=== PATIENT | male | born 1960 | race Caucasian/White ===

== ENCOUNTER 2016-10-28 16:20 | Inpatient (IN) | payer OTHER ==
[~2016-10-28] VITALS: Ht 188 cm; Wt 99.8 kg
[2016-10-28 16:35] VITALS: BP 158/118
--- NOTE | 2016-10-28 16:36 | NUR ---
PT TAKEN TO ROOM 12.
--- NOTE | 2016-10-28 16:36 | NUR ---
PT TO ED FOR ETOH DETOX. THIS IS PT'S FIRST TIME DETOXING, FIRST TIME SEEKING MEDICAL ATTENTION FOR ETOH W/D, BUT DENIES SEIZURES WITH SELF-DETOX AT HOME. DRINKS ABOUT A PINK OF VODKA A DAY. LAST DRINK WAS A HALF A PINK OF VODKA LAST NIGHT. PT DENIES SI/HI. TREMULOUS IN TRIAGE.
--- NOTE | 2016-10-28 16:43 | NUR ---
PT TO ROOM 12 FOR ETOH DETOX. PT VISIBLY TREMULOUS, DENIES HEADACHE OR NAUSEA. EKG PERFORMED. PT'S SKIN IS FLUSHED AND STATES HIS LAST DRINK WAS YESTERDAY.
--- NOTE | 2016-10-28 16:44 | ED GENERAL ADULT ---
See Addendum History of Present Illness General Chief Complaint: ETOH/Drug Related Complaint Stated Complaint: ETOH WITHDRAWL Source: patient, family Exam Limitations: no limitations Vital Signs & Intake/Output Vital Signs & Intake/Output Vital Signs Date Time Temp Pulse Resp B/P B/P Pulse O2 O2 Flow FiO2 Mean Ox Delivery Rate 10/29 1605 98.4 85 18 144/96 07/02 1525 98.4 85 18 144/96 94 Room Air 07/02 1100 59 156/90 07/02 1100 59 156/90 07/02 0959 98.8 59 18 156/90 07/02 0930 98.8 59 18 156/90 95 Room Air 07/02 0922 97.2 65 16 146/88 97 Room Air 07/02 0813 97.0 72 18 144/92 07/02 0813 97.0 72 18 144/92 96 Room Air 07/02 0700 97.0 100 20 159/99 95 07/02 0659 97.0 100 20 159/99 07/02 0543 97.0 72 20 159/101 95 07/02 0540 97.0 72 20 159/101 07/02 0437 97.9 78 20 151/99 95 Room Air 07/02 0435 97.9 78 20 151/99 07/02 0332 96.9 75 20 149/107 96 Room Air 07/02 0331 96.9 75 20 149/107 07/02 0252 97.9 110 22 155/106 07/02 0252 97.9 110 22 155/106 07/02 0218 97.9 110 22 155/106 07/02 0218 97.9 110 22 155/106 95 Room Air 07/02 0103 97.9 113 22 151/94 95 Room Air 07/02 0100 97.9 113 22 151/94 07/01 2340 98.5 120 22 155/94 07/01 2337 98.5 120 22 155/94 95 Room Air 07/01 2229 98.0 116 18 159/98 07/01 2228 98.0 116 16 159/98 94 Room Air 07/01 2101 130 16 150/96 07/01 2101 130 16 150/96 95 Room Air ED Intake and Output 07/02 0000 07 1200 Intake Total Output Total Balance Patient 220 lb Weight Weight Reported by Patient Measurement Method Allergies Coded Allergies: No Known Allergies (10/28/16) Reconcile Medications Aspirin (Aspirin*) 81 MG TAB.CHEW CARDIAC HEALTH (Reported) Lisinopril 20 MG TABLET 1 TAB PO DAILY HTN (Reported) Multivitamin (One Daily Multivitamin) 1 EACH TABLET 1 TAB PO DAILY SUPPLEMENT (Reported) Triage Note: PT TO ED FOR ETOH DETOX. THIS IS PT'S FIRST TIME DETOXING, FIRST TIME SEEKING MEDICAL ATTENTION FOR ETOH W/D, BUT DENIES SEIZURES WITH SELF-DETOX AT HOME. DRINKS ABOUT A PINK OF VODKA A DAY. LAST DRINK WAS A HALF A PINK OF VODKA LAST NIGHT. PT DENIES SI/HI. TREMULOUS IN TRIAGE. Triage Nurses Notes Reviewed? yes HPI: Patient has a history of binge drinking. Patient has never been through detox rehabilitation before however states that he has been able to stop abruptly 2 weeks in the past. Patient states that when he does stop for that long he gets a little tremulous but that's it there is no history of seizures or DTs. Patient went to rehabilitation today but he was intoxicated suicide down to the emergency department for evaluation. Patient denies any suicidal homicidal ideations. There is no nausea. There is no headache. (DAVEY FREIRE,JULES Cerda) Past History Travel History Traveled to [place] past 21 day No Medical History Any Pertinent Medical History? see below for history Neurological: NONE EENT: NONE Cardiovascular: hypertension Respiratory: NONE Gastrointestinal: NONE Hepatic: NONE Renal: NONE Musculoskeletal: NONE Psychiatric: ETOH ABUSE Endocrine: NONE Blood Disorders: NONE Cancer(s): NONE AREA CAPTAIN/Reproductive: NONE Surgical History Surgical History: non-contributory Psychosocial History What is your primary language Malian Tobacco Use: Never used ETOH Use: alcoholic Illicit Drug Use: denies illicit drug use Family History Hx Contributory? No (DAVEY FREIRE,JULES Cerda) Review of Systems Review of Systems Constitutional: Reports: no symptoms. EENTM: Reports: no symptoms. Respiratory: Reports: no symptoms. Cardiovascular: Reports: no symptoms. GI: Reports: no symptoms. Genitourinary: Reports: no symptoms. Musculoskeletal: Reports: no symptoms. Skin: Reports: no symptoms. Neurological/Psychological: Reports: see HPI. Hematologic/Endocrine: Reports: no symptoms. Immunologic/Allergic: Reports: no symptoms. All Other Systems: Reviewed and Negative (JULES MARISCAL MD) Physical Exam Physical Exam General Appearance: well developed/nourished, alert, awake, anxious, moderate distress Head: atraumatic, normal appearance Eyes: Bilateral: PERRL, EOMI. Ears, Nose, Throat: normal pharynx, normal ENT inspection, hearing grossly normal Neck: normal inspection, supple, full range of motion Respiratory: normal breath sounds, chest non-tender, no respiratory distress, lungs clear Cardiovascular: normal peripheral pulses, tachycardia Gastrointestinal: normal bowel sounds, soft, non-tender, no organomegaly Back: normal inspection, normal range of motion Extremities: normal inspection, normal capillary refill, normal range of motion, no edema Neurologic/Psych: no motor/sensory deficits, awake, alert, oriented x 3, normal mood/affect Skin: intact, normal color, warm/dry Lymphatic: no anterior cervical luz maria Core Measures ACS in differential dx? No CVA/TIA Diagnosis: No Severe Sepsis Present: No Septic Shock Present: No (DAVEY FREIRE,JULES Cerda) Progress Differential Diagnoses I considered the following diagnoses in my evaluation of the patient: [Alcohol withdrawal, alcohol dependency] Plan of Care: Orders Procedure Date/time Status URINALYSIS 10/30 06 Active PROTHROMBIN TIME 10/30 0600 Active HEPATIC FUNCTION PANEL 10/30 06 Active HEPATITIS PANEL 10/30 06 Active CBC WITHOUT DIFFERENTIAL 10/30 0600 Active BASIC ELECTROLYTES PLUS BUN&CR 10/30 0600 Active Heart Healthy Diet 10/29 L Active Regular Diet 10/29 B Complete Pathway - chart 10/29 1550 Active Teach/Educate 10/29 0959 Active Pain Treatment and Response 10/29 0959 Active Nutritional Intake, Monitor 10/29 0959 Active Isolation 10/29 0959 Active Patient Care Conference 10/29 0959 Active Pathway - chart 10/29 0948 Active Pathway - chart 10/29 0946 Active House Staff 10/29 0946 Active Patient Data 10/29 0946 Active SOCIAL WORK CONSULT 10/29 0946 Active Code Status 10/29 0946 Active Patient Data 10/29 0726 Active Saline Lock 10/29 0720 Active Misc Message 10/29 0720 Active ED Holding Orders 10/29 0720 Active Vital Signs 10/29 0720 Active Activity/Ambulation 10/29 0720 Active Code Status 10/29 0720 Complete Admit to inpatient 10/29 0716 Active ARTERIAL BLOOD GAS (GEN) 10/29 0420 Complete AMMONIA 10/29 0420 Complete COMPREHENSIVE METABOLIC PANEL 10/29 0420 Complete CBC WITHOUT DIFFERENTIAL 10/29 0420 Complete CREATINE PHOSPHOKINASE 10/29 0335 Complete Lab Add-on Test 10/29 UNK Active VTE Mechanical Prophylaxis 10/29 UNK Active Vital Signs 10/29 UNK Complete Intake & Output 10/29 UNK Active CIWA 10/29 UNK Active EKG 10/29 UNK Active Pathway - chart 10/28 2348 Active URINALYSIS 10/28 2326 Complete Pathway - chart 10/28 2232 Active Intake & Output 10/28 2041 Complete Current Medications Sig/Joe Start time Last Medication Dose Stop Time Status Admin Lorazepam 3 MG Q6 10/30 0600 CAN (Ativan) 10/30 1801 Ibuprofen 600 MG Q6P PRN 10/29 1800 AC (Motrin) Morphine Sulfate 1 MG Q4P PRN 10/29 1800 AC (Morphine) Oxycodone HCl 5 MG Q6P PRN 10/29 1800 AC (Roxicodone) Senna 187 MG AT BEDTIME PRN 10/29 1600 AC (Senokot) Lorazepam 3 MG Q6 10/29 1200 AC 10/29 (Ativan) 1801 Folic Acid 1 MG DAILY 10/29 1000 AC 10/29 (Folic Acid) 10/31 1001 1100 Lisinopril 20 MG DAILY 10/29 1000 AC 10/29 (Prinivil) 1100 Metoprolol Tartrate 25 MG BID 10/29 1000 AC 10/29 (Lopressor) 1100 Multivitamins 1 TAB DAILY 10/29 1000 AC 10/29 (Theragran Vitamins) 1100 Multivitamins 1 TAB DAILY 10/29 1000 CAN Therapeutic (Theragran-M Vitamins Tabs) Thiamine HCl 100 MG DAILY 10/29 1000 AC 10/29 (Vitamin B1) 10/31 1001 1100 Sodium Chloride 1,000 ML .Q8H 10/29 0730 AC 10/29 (Normal Saline 0.9%) 1614 Lorazepam 2 MG Q2P PRN 10/28 2345 AC 10/29 (Ativan) 0704 Lorazepam 1 MG Q2P PRN 10/28 2345 AC 10/29 (Ativan) 1613 Laboratory Tests 10/29/16 0430: pH 7.45, pCO2 33 L, pO2 68 L, HCO3 22, ABG O2 Sat (Measured) 93.0 L, P-50 ( Temp Corrected) N, Carboxyhemoglobin 1.1 L, O2 Concentration % RA, Phlebotomy Draw Site RIGHT BRACHIAL 10/29/16 0335: Anion Gap 11, Estimated GFR > 60, BUN/Creatinine Ratio 18.8, Glucose 95, Calcium 9.3, Total Bilirubin 1.5 H, AST 253 H, ALT 216 H, Alkaline Phosphatase 88, Ammonia < 9 L, Creatine Kinase 481 H, Total Protein 6.8, Albumin 4.1, Globulin 2.7, Albumin/Globulin Ratio 1.5, CBC w Diff MAN DIFF ORDERED, RBC 3.95 L, MCV 91.1, MCH 30.4, RDW 17.2 H, MPV 8.0, Segmented Neutrophils 27 L, Band Neutrophils 5, Lymphocytes 55 H, Monocytes 8, Eosinophils 2, Basophils 3 H, Platelet Estimate ADEQUATE, Normocytic RBCs VERIFIED, Normochromic RBCs VERIFIED , PUBS MCHC 33.4 10/28/16 2327: Urine Opiates Screen < 100.00, Methadone Screen < 40, Barbiturate Screen < 60, Ur Phencyclidine Scrn < 6.00, Amphetamines Screen < 100, U Benzodiazepines Scrn < 85, Urine Cocaine Screen < 50, Urine Cannabis Screen < 5.00, Urinalysis LIGHT H, Urine Color ORANG H, Urine Clarity CLEAR, Urine pH 6.0, Ur Specific [place] >= 1.030, Urine Protein >=300 H, Urine Ketones 40 H, Urine Nitrite NEG, Urine Bilirubin NEG@ICTO, Urine Urobilinogen 1.0, Ur Leukocyte Esterase NEG, Ur Microscopic SEDIMENT EXAMINED, Urine RBC 1-3, Urine WBC RARE, Ur Epithelial Cells RARE, Hyaline Casts 1-3 H, Granular Casts 1-3 H, Urine Mucus FEW, Urine Hemoglobin LARGE H, Urine Glucose NEG Initial ED EKG: none Rhythm Strip: sinus tachycardia Hand-Off Endorsed To: BONITA FREIRE,SLIME Bermudez Endorsed Time: 1899 Pending: labs, other (RE-EVAL) (DAVEY FREIRE,JULES Cerda) Comments: 10/28/2016 8:04:00 PM patient 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 Patient presents for alcohol dependence abdominal distention and diarrhea appears to be withdrawing from alcohol. Patient is being medicated with Ativan. He has declined inpatient detox. He will be observed overnight and referred to [facility] in the morning. If the patient's withdrawal symptoms becomes severe however he will be admitted for inpatient detox. 10/29/2016 2:36:03 AM I have begun treating meal for acute alcohol withdrawal. I feel he now requires inpatient detox given his significantly elevated CIWA scores. Although CIWA scores have improved with Ativan, he remains hypertensive and tachycardic. I have ordered his typical dose of lisinopril and have added Lopressor. We will continue to monitor CIWA scores and rate and blood pressure. Patient will need preauthorization for inpatient detox. 10/29/2016 4:20:51 AM patient's vital signs have improved with treatment. However this patient's nurse is concerned about his level of alertness. She states he seems to be unaware that he had soiled his undergarments and seems to forget that he has an IV in place. It is unclear if this is a due to an underlying metabolic process or that he is confused secondary to undertreated alcohol withdrawal. Additional Ativan has been ordered along with repeat labs. 10/29/2016 7 AM patient signed out to Dr. Mariscal. With review of patient's insurance entitlements at sign out, was determined that the patient does not in fact need preauthorization. He will be admitted. (BONITA FREIRE,SLIME Bermudez) Departure Departure Disposition: STILL A PATIENT Condition: Stable Clinical Impression Primary Impression: Alcohol intoxication Qualifiers: Complication of substance-induced condition: uncomplicated Qualified Code: F10.920 - Alcohol use, unspecified with intoxication, uncomplicated Departure Forms: Customer Survey General Discharge Information (JULES MARISCAL MD) Alcohol Withdrawl Admission ED Alcohol Detox Admission d/t: CIWA Score >15 (SLIME MESA MD) Critical Care Note Critical Care Note Critical Care Time: non-applicable (JULES MARISCAL MD) Critical Care Note Critical Care Time: 30-74 min (SLIME MESA MD)
--- NOTE | 2016-10-28 16:58 | NUR ---
DR MARISCAL AT BEDSIDE FOR EVAL. PT'S BROTHER AT BEDSIDE.
--- NOTE | 2016-10-28 17:04 | NUR ---
PT MEDICATED WITH ATIVAN 2MG IV IV ESTABLISHED RIGHT FOREARM #20
[2016-10-28] MEDS ORDERED: LISINOPRIL20 M1 PO (17:06)
[2016-10-28] MEDS ORDERED: ASPIRIN81 M4 (17:07)
[2016-10-28] MEDS ORDERED: ONE DAILY MULT1 EAC2 PO (17:08)
--- NOTE | 2016-10-28 17:16 | NUR ---
PT STATES THAT HIS BROTHER CAME DOWN FROM [place] TO GET PT INTO TREATMENT FOR ETOH. PT'S BROTHER BROUGHT PT TO [facility] AND THEY WERE DIRECTED TO COME TO [facility] FOR DETOX. PT PLANS ON GOING TO [facility] AFTER D/C FROM THIS HOSPITAL. PT DENIES HX OF W/D SEIZURES. 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
[2016-10-28 17:17] LABS: ABSOLUTE BASOPHIL COUNT 0 /CUMM (0.0-0.2); ABSOLUTE EOSINOPHIL COUNT 0 /CUMM (0.0-0.7); ABSOLUTE GRANULOCYTE CT 3.4 /CUMM (1.4-6.5); ABSOLUTE LYMPH COUNT 1.2 /CUMM (1.2-3.4); ABSOLUTE MONOCYTE COUNT 0.7 /CUMM (0.10-0.60); BASOPHIL % 0 % (0.0-2.0); EOSINOPHIL % 0.9 % (0-5); MEAN CORPUSCULAR HGB CONC 33.2 G/DL (33.0-37.0); MEAN CORPUSCULAR VOLUME 90.4 FL (80.0-94.0); MEAN PLATELET VOLUME 7.9 FL (7.4-10.4); PLATELET COUNT 186 /CUMM (130-400); RBC DISTRIBUTION WIDTH 17.1 % (11.5-14.5); RED BLOOD CELL CT 4.43 /CUMM (4.70-6.10); WHITE BLOOD CELL COUNT 5.4 /CUMM (4.8-10.8)
[2016-10-28 17:41] LABS: GRANULOCYTE % 63.2 % (42.2-75.2)
[2016-10-28 18:20] VITALS: BP 161/102
--- NOTE | 2016-10-28 18:21 | NUR ---
PT MEDICATED WITH ATIVAN 2MG IV AND 2MG PO FOR CIWA = 13. PT DENIES HEADACHE OR NAUSEA. PT REQUESTED PETROLEUM JELLY FOR HIS LIPS WHICH WERE DRY, THIS RN APPLIED TO PT, HE IS TOO TREMULOUS TO DO IT HIMSELF. AWAITING URINE SPECIMEN.
--- NOTE | 2016-10-28 19:11 | NUR ---
PT REMAINS TREMULOUS AND DENIES ANY OTHER WITHDRAWAL SYMPTOMS. CO REQUESTED AND WAS PROVIDED WITH CHE NASEEM AND SALTINE CRACKERS. WILL MAKE MD AWARE OF VITALS.
[2016-10-28 21:01] VITALS: BP 150/96
--- NOTE | 2016-10-28 21:02 | NUR ---
PT ATTEMPTED TO PROVIDE URINE SPECIMEN BUT WAS UNSUCCESSFUL. PT PROVIDED WITH MORE WATER TO DRINK. PT CALM AND COOPERATIVE. PT REMAINS VERY TREMULOUS. PT WATCHING TV IN ROOM 12.
--- NOTE | 2016-10-28 22:27 | NUR ---
PT LYING ON STRETCHER IN ROOM 12 WITH FLUSHED, WARM SKIN. PT WITH STRONG TREMORS. AT THIS TIME PT DENIES HEADACHE OR NAUSEA. PT CALM AND COOPERATIVE.
[2016-10-28 22:29] VITALS: BP 159/98
--- NOTE | 2016-10-28 22:45 | NUR ---
PT MEDICATED WITH ATIVAN 2MG IV AND 1ST LITER OF SALINE STARTED.
--- NOTE | 2016-10-28 23:20 | NUR ---
PT AWAKENED TO ATTEMPT TO VOID REPORTS HE HAS NOT TRIED TODAY PT AWARE OF TIME AND THAT HE HAS BEEN HERE ALL DAY, PT AWARE THAT SINCE HE HAS HAD FLUIDS I AM CONCERNED ABOUT HIS KIDNEYS SINCE HE HAS NOT VOIDED. ATTEMPTING AT THIS TIME. PT AWARE THAT A ST CATH WOULD BE PERFORMED IF UNABLE TO VOID. PT VERY TREMUL;OUS/
--- NOTE | 2016-10-28 23:28 | NUR ---
VOIDED 200 CCS CONCENTRATED ORANGE URINE UA ADDED AND SENT
--- NOTE | 2016-10-28 23:34 | NUR ---
PTS VALUABLES ENVELOPE SEALED FOUND ON HAMPER IN ROOM MOVED TO SAFE. CLOTHING IN BAG ON RIAN IN ROOM ,NANCY CONTACTED FROM SECURITY TO RE GO THROUGH CLOTHES AND MOVE TO CLOSET.
[2016-10-28 23:40] VITALS: BP 155/94
--- NOTE | 2016-10-28 23:44 | NUR ---
DR. MESA AWARE PT VERY TREMULOUS AND CIWA 20. MED WITH 2 MG IV ATIVAN.
[2016-10-29] VITALS (15 sets, daily range): BP systolic 140–159; BP diastolic 85–107
--- NOTE | 2016-10-29 00:23 | NUR ---
PER PHARMACY ED MIXES OWN BANANA BAGS, THIS RN MADE PHARMACIST AWARE THAT WE USUALLY DO NOT MIX IT AND THERE IS NO FOLATE IN ED AT THIS TIME. PER PHARMACY WILL NEED TIME TO MIX. PER DR MESA PT HAS HUSKY AND NEEDS PRIOR AUTH FOR MEDICAL ADMISSION WILL STAY ED PT OVER NIGHT
--- NOTE | 2016-10-29 00:43 | NUR ---
REMAINS SL TREMULOUS AND SL FORGETFUL.
--- NOTE | 2016-10-29 02:30 | NUR ---
MD AWARE OF CONSISTANTLY HIGH BP/.
--- NOTE | 2016-10-29 04:29 | NUR ---
PT INCONTINENT OF SOFT LIQUID STOOL. PT REQUESTS TO KEEP HIS UNDERWEAR ON PT IS AWARE THAT HIS UNDERWEAR ARE SOILED, PT DOES NOT APPEAR TO COMPREHEND THIS CONCEPT, PT HAD TO BE ASSISTED IN REMOVING UNDERWEAR. PT CONTINUALLY LOOKS AT IV TUBING IF IT IS THE FIRST TIME HE IS SEEING IT. DENIES VISUAL OR AUDITORY HALLUCINATIONS, AND IS CLEAR TO PERSON, PLACE AND TIME BUT LITTLE ELSE. PT HAS DRY FLAKY SKIN TO BLE, WHICH IS NORMAL EXCEMA.DR MESA CONSULTED. PT REMAINS MORE TREMULOUS WITH AMBULATION, UNABLE TO WALK INDEPENDENTLY. REMED WITH 2 MG IV ATIVAN REPEAT LABS AMMONIA AND ABGS DRAWN
[2016-10-29 04:43] LABS: HEMATOCRIT 35.9 % (42-52); MEAN CORPUSCULAR HGB 30.4 PG (27.0-31.0); MEAN CORPUSCULAR HGB CONC 33.4 G/DL (33.0-37.0); MEAN CORPUSCULAR VOLUME 91.1 FL (80.0-94.0); PLATELET COUNT 149 /CUMM (130-400); RBC DISTRIBUTION WIDTH 17.2 % (11.5-14.5); RED BLOOD CELL CT 3.95 /CUMM (4.70-6.10); WHITE BLOOD CELL COUNT 4.3 /CUMM (4.8-10.8)
--- NOTE | 2016-10-29 07:22 | NUR ---
ASSUMED CARE OF PT AT THIS TIME, PT SITTING UP EATING BREAKFAST TRAY AT THIS TIME. REMAINS SLIGHTLY TREMULOUS AT THIS TIME.
--- NOTE | 2016-10-29 08:04 | NUR ---
PT ADMITTED TO ROOM 216-2
--- NOTE | 2016-10-29 08:14 | NUR ---
PT SITITNG UP WATCHING TV AT THIS TIME, BANANA BAG CONTINUES TO INFUSE PER ORDER. PT OFFERS NO COMPLAINTS. SKIN WARM/DRY. SLIGHT TREMORS NOTED WITH IMPROVEMENT FROM PREVIOUS. PT AWARE HE WILL BE ADMITTED TO THE HOSPITAL AND IN AGREEMENT IN PLAN OF CARE.
--- NOTE | 2016-10-29 08:32 | NUR ---
REPORT GIVEN TO MARI JETER.
--- NOTE | 2016-10-29 08:40 | History & Physical ---
ROBB FREIRE,ALFRED 10/29/16 0835: General Information and HPI MD Statement: I have seen and personally examined MAYANK SAMAYOA and documented this H&P. The patient is a 56 year old M who presented with a patient stated chief complaint of [ETOH DETOX]. Source of Information: patient Exam Limitations: no limitations History of Present Illness: This is a 56 yo male with PMH of HTN, psoriasis on Humira who comes in with CC of requesting Etoh detox. Pt states that he had been binge drinking for a week and decided to quit suddenly. He went to a rehab facility at request of a brother and when at the facility he was visibly intoxicated, he sent to ED. Pt states that he drinks every day about .5 to 1 pint of vodka. He has been able to stop cold turkey for several weeks at a time without adverse consequences. He has never had a hx of seizure or DTs. He has never been to any form of rehab for etoh withdrawl. He does have history of black outs, the last time in March. At that time, he was working in the yard, reportedly un-intoxicated, and then found himself down for an unknown period of time. He denies any bladder or bowel control but does endorse a dazed sensation after. This has happended a total of 4-5 times in the last 3-4 yrs. He follows up with a neurologist in [place] who prescribed pyridostigmine. Unsure of the veracity of information, but he does have prescription for the medication. Patient denies any other medical or psychiatric diagnosis. Fam hx relevant for TX in father at age 57. Pt denies smoking or using any drugs. Denies any fever, chills, nausea, vomiting, diarrhea, headache, change in vision, or loss of consciousness. He was in ED with CIWA scores at max of 20. As he has had high requirements for Ativan and decision was made to admit for inpatient detox. Allergies/Medications Allergies: Coded Allergies: No Known Allergies (10/28/16) Home Med list Aspirin (Aspirin*) 81 MG TAB.CHEW CARDIAC HEALTH (Reported) Lisinopril 20 MG TABLET 1 TAB PO DAILY HTN (Reported) Multivitamin (One Daily Multivitamin) 1 EACH TABLET 1 TAB PO DAILY SUPPLEMENT (Reported) Compliance With Home Meds: POOR Past History Travel History Traveled to [place] past 21 day No Medical History Neurological: NONE EENT: NONE Cardiovascular: hypertension Respiratory: NONE Gastrointestinal: NONE Hepatic: NONE Renal: NONE Musculoskeletal: NONE Psychiatric: ETOH ABUSE Endocrine: NONE Blood Disorders: NONE Cancer(s): NONE 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 Ambulation: independent IADLs Independent: shopping, housework, finances, food prep, telephone, transportation , medication admin. Review of Systems Review of Systems Constitutional: Reports: see HPI. Exam & Diagnostic Data Last 24 Hrs of Vital Signs/I&O Vital Signs Date Time Temp Pulse Resp B/P B/P Pulse O2 O2 Flow FiO2 Mean Ox Delivery Rate / 0813 97.0 72 18 144/92 07/ 0813 97.0 72 18 144/92 96 Room Air 07/02 0700 97.0 100 20 159/99 95 07/02 0659 97.0 100 20 159/99 07/02 0543 97.0 72 20 159/101 95 07/02 0540 97.0 72 20 159/101 07/02 0437 97.9 78 20 151/99 95 Room Air 07/02 0435 97.9 78 20 151/99 07/02 0332 96.9 75 20 149/107 96 Room Air 07/02 0331 96.9 75 20 149/107 07/02 0252 97.9 110 22 155/106 07/02 0252 97.9 110 22 155/106 07/02 0218 97.9 110 22 155/106 07/02 0218 97.9 110 22 155/106 95 Room Air 07/02 0103 97.9 113 22 151/94 95 Room Air 07/02 0100 97.9 113 22 151/94 07/01 2340 98.5 120 22 155/94 07/01 2337 98.5 120 22 155/94 95 Room Air 07/01 2229 98.0 116 18 159/98 07/01 2228 98.0 116 16 159/98 94 Room Air 07/ 2101 130 16 150/96 07/ 2101 130 16 150/96 95 Room Air 07/01 1911 121 16 167/93 95 Room Air 10/28 1820 133 18 161/102 10/28 1820 133 18 161/102 95 Room Air 10/28 1705 Room Air 10/28 1635 97.1 123 15 158/118 01 1632 97.1 123 15 158/118 97 Room Air Room Air Intake & Output 10/29 1600 07/ 0800 07 0000 Intake Total Output Total Balance Patient 99.79 kg Weight Weight Reported by Patient Measurement Method Physical Exam General Appearance Alert, Oriented X3, Cooperative, No Acute Distress Skin No Significant Lesion HEENT Atraumatic, PERRLA, EOMI Cardiovascular Regular Rate, Normal S1, Normal S2, No Murmurs Lungs Clear to Auscultation, Normal Air Movement Abdomen Soft Neurological Normal Speech, Sensation Intact, Cranial Nerves 3-12 NL Extremities No Clubbing, No Cyanosis, No Edema Last 24 Hrs of Labs/Aditya: Laboratory Tests 10/29/16 0430: pH 7.45, pCO2 33 L, pO2 68 L, HCO3 22, ABG O2 Sat (Measured) 93.0 L, P-50 ( Temp Corrected) N, Carboxyhemoglobin 1.1 L, O2 Concentration % RA, Phlebotomy Draw Site RIGHT BRACHIAL 10/29/16 0335: Anion Gap 11, Estimated GFR > 60, BUN/Creatinine Ratio 18.8, Glucose 95, Calcium 9.3, Total Bilirubin 1.5 H, AST 253 H, ALT 216 H, Alkaline Phosphatase 88, Ammonia < 9 L, Total Protein 6.8, Albumin 4.1, Globulin 2.7, Albumin/Globulin Ratio 1.5, CBC w Diff MAN DIFF ORDERED, RBC 3.95 L, MCV 91.1, MCH 30.4, RDW 17.2 H, MPV 8.0, Segmented Neutrophils 27 L, Band Neutrophils 5, Lymphocytes 55 H, Monocytes 8, Eosinophils 2, Basophils 3 H, Platelet Estimate ADEQUATE, Normocytic RBCs VERIFIED, Normochromic RBCs VERIFIED, PUBS MCHC 33.4 10/28/16 2327: Urine Opiates Screen < 100.00, Methadone Screen < 40, Barbiturate Screen < 60, Ur Phencyclidine Scrn < 6.00, Amphetamines Screen < 100, U Benzodiazepines Scrn < 85, Urine Cocaine Screen < 50, Urine Cannabis Screen < 5.00, Urinalysis LIGHT H, Urine Color ORANG H, Urine Clarity CLEAR, Urine pH 6.0, Ur Specific [place] >= 1.030, Urine Protein >=300 H, Urine Ketones 40 H, Urine Nitrite NEG, Urine Bilirubin NEG@ICTO, Urine Urobilinogen 1.0, Ur Leukocyte Esterase NEG, Ur Microscopic SEDIMENT EXAMINED, Urine RBC 1-3, Urine WBC RARE, Ur Epithelial Cells RARE, Hyaline Casts 1-3 H, Granular Casts 1-3 H, Urine Mucus FEW, Urine Hemoglobin LARGE H, Urine Glucose NEG 10/28/16 1705: Anion Gap 19 H, Estimated GFR > 60, BUN/Creatinine Ratio 17.8, Glucose 88, Calcium 10.1, Total Bilirubin 1.2, AST 402 H, ALT 276 H, Alkaline Phosphatase 109, Total Protein 8.0, Albumin 4.9, Globulin 3.1, Albumin/Globulin Ratio 1.6, CBC w Diff NO MAN DIFF REQ, RBC 4.43 L, MCV 90.4, MCH 30.0, RDW 17.1 H, MPV 7.9, Gran % 63.2, Lymphocytes % 22.4, Monocytes % 13.5 H, Eosinophils % 0.9, Basophils % 0 L, Absolute Granulocytes 3.4, Absolute Lymphocytes 1.2, Absolute Monocytes 0.7 H, Absolute Eosinophils 0, Absolute Basophils 0, PUBS MCHC 33.2, Serum Alcohol 40.0 Assessment/Plan Assessment: This is a 56 yo male with PMH of HTN, psoriasis on Humira, alcohol abuse, questionable hx of black outs who comes in for CC of etoh detox. CIWA in ED ranging form 8-20. Has requred 16mg Ativan in less than 24 hrs. ED work up shows: Vitals: 97.1, 123, 15, 158/118, 97 AB.45, PCO2 33, bicarbonate 22 CBC: White count 4.3, hemoglobin 12.0, hematocrit 35.9 BEP sodium 135, BUN 15, creatinine 0.8 T bili 1.5, AST 253, ALT 216, UA: Greater than 300 protein, 40 ketones, large hemoglobin with only 1-3 and RBC. PLAN Etoh detox: Patient has has CIWA scores ranging from 8-20. He had requirement of almost 16 mg of Ativan in 24 hours. Though patient denies any history of DTs or seizures, his episodes of blackout are concerning for possible seizure activity. * CIWA protocol and 3q6 around the clock * Banana bag--> PO vitamins * Social work consult Hypertension: Patient is usually on lisinopril 20 mg at home. Here he was started on home meds in addition to metoprolol 50 mg bid as his blood pressure remained elevated in ED. Will decrease lopressor. Once his CIWA score stabilize consider removing metoprolol if appropriate. * Lisinopril 20 mg * Lopressor 25 mg by mouth twice a day Transaminitis: Patient has T bili 1.5, AST 253, ALT 216. This is likely secondary to alcohol consumption. Will rule out other etiologies * Continue to monitor LFTs in am tomorrow * Hepatitis panel in AM * Coags in AM Hematuria: Patient has large hemoglobin on UA but only 1-3 RBC. Considering rhabdo at this time. * CPK * Repeat UA in AM Psoriasis: Pt is on Humira; unsure of time of last dose. Holidng in hospital. Will have to obtain records. * Get records BLACK OUTS and Pyridostigmine: Unsure of hx of black outs and why pt is on this medication. Will have to call his nerurologist and verify his history. * Holding pyridostigmine! * Call neurologist FULL CODE [facility] Heart healthy diet As Ranked By This Provider Problem List: 1. Alcohol intoxication Qualifiers Complication of substance-induced condition: uncomplicated Qualified Code: F10.920 - Alcohol use, unspecified with intoxication, uncomplicated Core Measures/Miscellaneous Acute Coronary Syndrome ACS Diagnosis: No Cerebrovascular Accident CVA/TIA Diagnosis: No Congestive Heart Failure CHF Diagnosis: No VTE (View Protocol) VTE Risk Factors: Acute medical illness, Age > 40 [facility] prophylaxis d/t: No contraindications No VTE Pharm Prophylaxis d/t: No contraindications VTE Diagnosis: No VTE Type: NONE VTE Confirmed by (Test): NONE Sepsis (View Protocol) Severe Sepsis Present: No Septic Shock Septic Shock Present: No Miscellaneous Documentation Attending Case Discussed With: MARIA DE JESUS MENA MD Primary Care Physician: UNKNOWN Patient sees these Specialists unknown Level of Patient Care: General Medicine Resident Review Statement Resident Statement: examined this patient MARIA DE JESUS MENA MD 10/29/16 0958: Attending MD Review Statement Attending Statement Attending MD Statement: examined this patient, discuss w/resident/PA/[employer], agreed w/resident/PA/[employer], reviewed EMR data (avail), reviewed images Attending Assessment/Plan: 56-year-old male past medical history of alcohol abuse, hypertension, psoriasis on Humira and a history of blackouts on pyridostigmine. He is here for acute alcohol withdrawal. This is his very first inpatient detox. He was scheduled to go to [facility] in [place] for inpatient alcohol rehabilitation but he was intoxicated and tremulous and hence sent here. He was watched overnight in the ER from 5 PM yesterday and CIWA ranged from 8-20 and he received a total of 16 mg of Ativan in less than 24 hours overnight in the ER. Will bring him into [facility] and treat him with Ativan [id number]. We'll give him 3 mg every 6 hours with IV Ativan/by mouth Ativan per CIWA. We'll give him the thiamine, folate and multivitamins. Continue his lisinopril for blood pressure and low-dose metoprolol has been added in the ER for hypetension and tachycardia but I suspect is all withdrawal related. Obviously hold the Humira and pyridostigmine and get more collateral info from the PCP. DVT prophylaxis, trend the alcoholic transaminitis and elevated bili closely. And social work consult in a.m.
--- NOTE | 2016-10-29 09:58 | Admission Certification ---
Admission Certification Certification Statement - As attending physician, I certify that at the time of - admission, based on clinical presentation, severity of - symptoms, need for further diagnostic testing and - therapeutic interventions, and risk of adverse outcomes - without in-hospital treatment, in my clinical assessment, - this patient requires an acute hospital stay for a minimum - of two nights or longer. I have also considered psychsocial - factors such as support system, advanced age, financial - issues, cognitive issues, and failed out-patient treatments, - past re-admission history, safety of patient, and lack of - compliance as applicable. Specific rationale supporting this admission is: Acute alcohol withdrawal needs Ativan [id number]
--- NOTE | 2016-10-29 10:44 | RADIOLOGY REPORT ---
EXAMINATION: PORTABLE CHEST 1 VIEW CLINICAL INFORMATION: LOW O2 SAT COMPARISON: No recent pertinent prior studies are available for comparison. TECHNIQUE: Portable frontal view of the chest was obtained. FINDINGS: Lungs are hypoexpanded with elevation of the right hemidiaphragm. Minimal linear basilar markings more suggestive of atelectasis in this setting. No superimposed focal infiltrate, effusion, edema, or pneumothorax. Cardiac and mediastinal silhouettes within normal limits for the technique no acute bony abnormality IMPRESSION: Hypoexpanded with elevation of the right hemidiaphragm and minimal basilar markings more suggestive of atelectasis
--- NOTE | 2016-10-29 19:19 | NUR ---
ALERT AND ORIENTED X 3. ON ROOM AIR. DENIES SHORTNESS OF BREATH VITAL SIGNS STABLE. DENIES CHEST PAIN. + PULSES. DENIES NUMBNESS/TINGLING GAIT UNSTEADY. SKIN C/D/I. ON CIWA PROTOCOL. TREMORS NOTED. PATIENT RESTING COMFORTABLY AT THIS TIME. WILL CONTINUE TO MONITOR
[2016-10-30] VITALS (10 sets, daily range): BP systolic 140–165; BP diastolic 70–108
[2016-10-30 08:03] LABS: ABSOLUTE BASOPHIL COUNT 0 /CUMM (0.0-0.2); ABSOLUTE EOSINOPHIL COUNT 0.1 /CUMM (0.0-0.7); ABSOLUTE GRANULOCYTE CT 2.1 /CUMM (1.4-6.5); ABSOLUTE LYMPH COUNT 1.9 /CUMM (1.2-3.4); ABSOLUTE MONOCYTE COUNT 0.9 /CUMM (0.10-0.60); BASOPHIL % 0 % (0.0-2.0); EOSINOPHIL % 1.1 % (0-5); GRANULOCYTE % 42.3 % (42.2-75.2); HEMATOCRIT 33.8 % (42-52); MEAN CORPUSCULAR HGB 30.7 PG (27.0-31.0); MEAN CORPUSCULAR HGB CONC 33.7 G/DL (33.0-37.0); MEAN CORPUSCULAR VOLUME 91.2 FL (80.0-94.0); MEAN PLATELET VOLUME 8.5 FL (7.4-10.4); PLATELET COUNT 128 /CUMM (130-400); RED BLOOD CELL CT 3.71 /CUMM (4.70-6.10); WHITE BLOOD CELL COUNT 4.9 /CUMM (4.8-10.8)
--- NOTE | 2016-10-30 08:38 | PN- Housestaff ---
Subjective Follow-up For: Alcohol detox Complaints: no complaints Subjective: I have seen and examined the pt. He is doing well and has no current complains. He denies any sob, chestpain or palpitations Review of Systems Constitutional: Reports: no symptoms. EENTM: Reports: no symptoms. Cardiovascular: Denies: chest pain, palpitations. Respiratory: Denies: cough, short of breath. Gastrointestinal: Denies: abdominal pain, constipation, diarrhea, distention, nausea, vomiting. Genitourinary: Reports: no symptoms. Musculoskeletal: Reports: no symptoms. Skin: Reports: no symptoms. Objective Last 24 Hrs of Vital Signs/I&O Vital Signs Date Time Temp Pulse Resp B/P B/P Pulse O2 O2 Flow FiO2 Mean Ox Delivery Rate 10/30 1939 98.5 52 18 162/100 96 Room Air / 1800 98.2 58 20 165/80 07/ 1600 98.2 58 20 165/80 07/ 1515 98.2 58 20 165/80 95 Room Air / 1200 52 142/100 / 0945 90 144/110 / 0943 90 144/110 07/ 0724 98.7 66 18 150/70 96 Room Air 07/03 0000 99.5 63 18 140/90 07/02 2200 99.5 63 18 140/90 07/02 2139 99.5 63 18 140/90 95 Room Air 07/02 2137 63 140/90 07/02 1951 98.8 72 18 140/85 Intake & Output / 1600 /03 0800 07/ 0000 Intake Total 1380 400 Output Total Balance 1380 400 Intake, IV 660 Intake, Oral 720 400 Number 2 1 Bowel Movements Physical Exam General Appearance: Alert, Oriented X3, Cooperative, No Acute Distress Skin: No Rashes, No Breakdown HEENT: Mucous Membr. moist/pink Neck: Supple Cardiovascular: Normal S1, Normal S2 Lungs: Clear to Auscultation, Normal Air Movement Abdomen: Normal Bowel Sounds, Soft, No Tenderness, No Masses Neurological: Normal Speech Current Medications: Current Medications Sig/Joe Start time Last Medication Dose Route Stop Time Status Admin Folic Acid 1 MG DAILY 10/29 1000 AC 10/30 PO 10/31 1001 0940 Ibuprofen 600 MG Q6P PRN 10/29 1800 AC PO Lisinopril 20 MG DAILY 10/29 1000 AC 10/30 PO 0945 Lorazepam 2 MG Q6 10/30 1200 AC 10/30 PO 1824 Lorazepam 3 MG Q6 10/29 1200 DC 10/30 PO 0555 Lorazepam 2 MG Q2P PRN 10/28 2345 AC 10/30 IV 0226 Lorazepam 1 MG Q2P PRN 10/28 2345 AC 10/29 IV 1958 Metoprolol Tartrate 25 MG BID 10/29 1000 DC 10/30 PO 0943 Morphine Sulfate 1 MG Q4P PRN 10/29 1800 AC IV Multivitamins 1 TAB DAILY 10/29 1000 AC 10/30 PO 0939 Oxycodone HCl 5 MG Q6P PRN 10/29 1800 AC PO Senna 187 MG AT BEDTIME PRN 10/29 1600 AC PO Sodium Chloride 1,000 ML .Q8H 10/29 0730 DC 10/29 IV 2353 Thiamine HCl 100 MG DAILY 10/29 1000 AC 10/30 PO 10/31 1001 0945 Last 24 Hrs of Lab/Aditya Results Last 24 Hrs of Labs/Mics: Laboratory Tests 10/30/16 1625: Urine Color YEL, Urine Clarity CLEAR, Urine pH 6.0, Ur Specific [place] 1.015, Urine Protein 30 H, Urine Ketones 15 H, Urine Nitrite NEG, Urine Bilirubin NEG , Urine Urobilinogen 0.2, Ur Leukocyte Esterase NEG, Ur Microscopic SEDIMENT EXAMINED, Urine RBC 3-5, Urine WBC RARE, Ur Epithelial Cells RARE, Urine Bacteria MOD H, Urine Mucus MOD H, Urine Hemoglobin MOD H, Urine Glucose NEG 10/30/16 0705: Anion Gap 8, Estimated GFR > 60, BUN/Creatinine Ratio 14.3, Total Bilirubin 1.2, Direct Bilirubin 0.3, AST 149 H, ALT 164 H, Alkaline Phosphatase 76, Total Protein 6.2 L, Albumin 3.7, PT 11.0, INR 1.05, CBC w Diff MAN DIFF ORDERED, RBC 3.71 L, MCV 91.2, MCH 30.7, RDW 17.0 H, MPV 8.5, Gran % 42.3, Lymphocytes % 39.1, Monocytes % 17.5 H, Eosinophils % 1.1, Basophils % 0 L, Absolute Granulocytes 2.1, Segmented Neutrophils 33 L, Band Neutrophils 1, Absolute Lymphocytes 1.9, Lymphocytes 48, Monocytes 14 H, Absolute Monocytes 0.9 H, Eosinophils 2, Absolute Eosinophils 0.1, Basophils 2, Absolute Basophils 0, Platelet Estimate , Hypochromic-Microcytic 2+, Anisocytosis 1+, PUBS MCHC 33.7 , Hepatitis A IgM Ab NONREACTIVE, Hep Bs Antigen NONREACTIVE, Hep B Core IgM Ab Conf NONREACTIVE, Hepatitis C Antibody NONREACTIVE Microbiology 10/30 1635 STOOL: Clostridium difficile Toxin A & B - RECD Orders CIWA Score (last 24 hrs): 9 to 12 Assessment/Plan Assessment: Assessment: This is a 56 yo male with PMH of HTN, psoriasis on Humira, alcohol abuse, questionable hx of black outs who comes in for CC of etoh detox. CIWA in ED ranging form 8-20 and requred 16mg Ativan in less than 24 hrs. ED work up shows: Vitals: 97.1, 123, 15, 158/118, 97 AB.45, PCO2 33, bicarbonate 22 CBC: White count 4.3, hemoglobin 12.0, hematocrit 35.9 BEP sodium 135, BUN 15, creatinine 0.8 T bili 1.5, AST 253, ALT 216, UA: Greater than 300 protein, 40 ketones, large hemoglobin with only 1-3 and RBC. PLAN Etoh detox: Patient has has CIWA scores ranging from 9 to 12. He had requirement of almost 18 mg of Ativan in 24 hours. Though patient denies any history of DTs or seizures, his episodes of blackout are concerning for possible seizure activity vs Alcohol abuse. * CIWA protocol 3q6 around the clock * Ativan dose decreased to 2mg q6 * Folate and thiamine. * Social work consult Hypertension: Patient is usually on lisinopril 20 mg at home. Here he was started on home meds in addition to metoprolol 50 mg bid as his blood pressure remained elevated in ED. * Lisinopril 20 mg, will increase the dose if BP increses * Lopressor 25 mg discontinued due to decrease in HR * Orthostatic findings laying BP 142/100 HR 52, Sitting 148/100 HR 63, Standing 144/102 HR 89 Transaminitis: Patient has T bili 1.5, AST 253, ALT 219 on admission. This is likely secondary to alcohol consumption. Will rule out other etiologies * Continue to monitor LFTs in am tomorrow TRENDING DOWN tbil 1.2 [address] 149 AKS253 * Hepatitis panel NONREACTIVE * Coags Normal Hematuria: Patient has large hemoglobin on UA but only 1-3 RBC on admission. UA rpeat shows mod Hb .normal bun and cr and cpk of 481 Psoriasis: Pt is on Humira; unsure of time of last dose. Holidng in hospital. Will have to obtain records. * HOLDING HUMIRA BLACK OUTS and Pyridostigmine: Unsure of hx of black outs and why pt is on this medication. Will have to call his nerurologist and verify his history. * Holding pyridostigmine! Problem List: 1. Alcohol intoxication Pain Ratin Pain Location: none Pain Goal: Pain 4 or less Pain Plan: a Tomorrow's Labs & Rationales: cbc bep
--- NOTE | 2016-10-30 11:35 | PN- Att Addend ---
Attending Addendum Attending Brief Note Patient seen and examined, he's feeling slightly better today. CIWA scores are running between 3 and 12. He did require significant amount of Ativan overnight. He currently denies any shaking or feeling anxious. Off note, patient was taking Pyridostigmine for the indication for blackouts, syncope. He was also on Humira with hx of psoriasis. Both Humira as well as Pyridosigmine have been held for now. Vital Signs Date Time Temp Pulse Resp B/P B/P Pulse O2 O2 Flow FiO2 Mean Ox Delivery Rate 10/30 0845 90 144/110 10/30 0943 90 144/110 10/30 0724 98.7 66 18 150/70 96 Room Air 10/30 0000 99.5 63 18 140/90 / 2200 99.5 63 18 140/90 / 2139 99.5 63 18 140/90 95 Room Air / 2137 63 140/90 / 1951 98.8 72 18 140/85 / 1930 98.8 72 18 140/85 96 Room Air / 1605 98.4 85 18 144/96 07/ 1525 98.4 85 18 144/96 94 Room Air on exam; aox3, nad. cv; s1,s2, rrr resp; clear abd; soft, nt, ns+ ext; no edema. Laboratory Tests 10/30 704 Chemistry Sodium (137 - 145 mmol/L) 135 L Potassium (3.5 - 5.1 mmol/L) 3.6 Chloride (98 - 107 mmol/L) 102 Carbon Dioxide (22 - 30 mmol/L) 26 Anion Gap (5 - 16) 8 BUN (9 - 20 mg/dL) 10 Creatinine (0.7 - 1.2 mg/dL) 0.7 Estimated GFR (>60 ml/min) > 60 BUN/Creatinine Ratio (7 - 25 %) 14.3 Total Bilirubin (0.2 - 1.3 mg/dL) 1.2 Direct Bilirubin (< 0.4 mg/dL) 0.3 AST (17 - 59 U/L) 149 H ALT (21 - 72 U/L) 164 H Alkaline Phosphatase (< 127 U/L) 76 Total Protein (6.3 - 8.2 g/dL) 6.2 L Albumin (3.5 - 5.0 g/dL) 3.7 Coagulation PT (9.4 - 12.5 SEC) 11.0 INR (0.90 - 1.17) 1.05 Hematology CBC w Diff MAN DIFF ORDERED WBC (4.8 - 10.8 /CUMM) 4.9 RBC (4.70 - 6.10 /CUMM) 3.71 L Hgb (14.0 - 18.0 G/DL) 11.4 L Hct (42 - 52 %) 33.8 L MCV (80.0 - 94.0 FL) 91.2 MCH (27.0 - 31.0 PG) 30.7 RDW (11.5 - 14.5 %) 17.0 H Plt Count (130 - 400 /CUMM) 128 L MPV (7.4 - 10.4 FL) 8.5 Gran % (42.2 - 75.2 %) 42.3 Lymphocytes % (20.5 - 51.1 %) 39.1 Monocytes % (1.7 - 9.3 %) 17.5 H Eosinophils % (0 - 5 %) 1.1 Basophils % (0.0 - 2.0 %) 0 L Absolute Granulocytes (1.4 - 6.5 /CUMM) 2.1 Segmented Neutrophils (42.2 - 75.2 %) 33 L Band Neutrophils (0.0 - 5.0 %) 1 Absolute Lymphocytes (1.2 - 3.4 /CUMM) 1.9 Lymphocytes (20.5 - 51.1 %) 48 Monocytes (1.7 - 9.3 %) 14 H Absolute Monocytes (0.10 - 0.60 /CUMM) 0.9 H Eosinophils (0 - 5.0 %) 2 Absolute Eosinophils (0.0 - 0.7 /CUMM) 0.1 Basophils (0.0 - 2.0 %) 2 Absolute Basophils (0.0 - 0.2 /CUMM) 0 Platelet Estimate (ADEQUATE) Hypochromic-Microcytic 2+ Anisocytosis 1+ PUBS MCHC (33.0 - 37.0 G/DL) 33.7 Serology Hepatitis A IgM Ab (NONREACTIVE) Pending Hep Bs Antigen (NONREACTIVE) Pending Hep B Core IgM Ab Conf (NONREACTIVE) Pending Hepatitis C Antibody (NONREACTIVE) Pending A/P; 56-year-old male with past medical history significant for alcohol use, history of psoriasis on Humira with the history of blackouts on pyridostigmine who is admitted with acute alcohol intoxication needing detox. Patient also had abnormal LFTs with transaminitis likely secondary to alcohol intake. Hepatitis panel is pending. Will decrease his Ativan to 2 g every 6 hours scheduled and continue the when necessary Ativan. Blood pressure is still slightly high which is likely secondary to alcohol withdrawal. Patient currently getting treated with lisinopril and beta wyatt. Please clarify with his neurologist about the indication for pyridostigmine. Humira is on hold. Continue MVI/ Folate and thiamine. DVT px: Please put the ALPS, plts are slightly decreasing.
--- NOTE | 2016-10-30 14:23 | Event Note ---
Event Note Event Note: Brett Hopson MSIII EVENT NOTE Since patient is a poor historian due to memory impairements, his primary neurologist facility was contacted ([facility]). Patient has a long history with multiple visitis with them and is schedule for an upcoming consult in November 2016, the last visit was in May 31, 2016. In this visit the patient states not having a syncope episode since March 2016 after being using the snowblower. Since this episode of syncope, patient was started on Pyridostigmine [place] 60mg PO, BID. Patient is also on Aspirin 81mg, Bethamethasone Dipropionate Aug 0.05% Ext. Cream, Humira Pen-Psoriasis Starter 40mg/0.8ML, Hydroxyzine HCl 25mg, Lisinopril 10mg, Lisinopril-Hydrochlorothizaide 20-12.5mg and Multiple Vitamin. The last visit in May, patient presented with sensory abnormalities in extremities, Romber's sign negative, decreased response to stimulation by vibration on feet, deep tendon reflexes abnormal and reduced in ankles, no [place]i Reflex and tandem gait test showed abnormailities. No neurological defects in Cranial Nerves or Motor examination. Previous EEG and MRI done and reported as normal. A problem plan describes as Polyneuropathy and Vasovagal Syncope vs Arrythmia . Notes taken from Magan Leblanc M.D.; May 31, 2016.
--- NOTE | 2016-10-30 16:11 | NUR ---
Sw referral from Md Rani for ETOH follow up care. sw into see pt after reviewing record. Pt is a 56 y.o. unemployed male who comes to [facility] for detox from ETOH only. Pt reports his family got together and told him he needed to go. Pt went to [facility] and wassent to [place] for Detox before he could do rehab there. Pt reports he has a family hx of ETOH abuse and his brother has had tx too. Pt reports another brother had EToh abuse and depression. 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 Pt finds the unstructured day difficult and then finds himself drinking more. Pt reports he has never been to rehab or been medically detoxed. Pt reports he has cut down or stopped his drinking on his own in the past. Pt reports yesterday he was not feeling well but today is a better day. Pt reports he has supports and visitors while in the hospital. Pt signs a relase of information for [facility] and agrees to have sw faxed info today as tomorrow is a holiday and he feels he mioght be ready. Call to Rodo at intake at [facility] reports pt has a bed when he is ready medically. [facility] can pick pt up at the hospital any time but would like to get him in the morning 8 or 9.
--- NOTE | 2016-10-30 16:38 | NUR ---
OTHROS DONE PER MD. VARIATION FROM SITTING TO STANDING GREATER THAN 20 FOR HEART RATE. PT SHOWED NO SIGNS OF DISTRESS. CONVEYOR MAINTENANCE MECHANIC DOROTEO NOTIFIED.
--- NOTE | 2016-10-30 18:51 | NUR ---
PATIENT IS ALERT. AT TIMES NOT ORIENTED TO PLACE. ON ROOM AIRE. DENIES SHORTNESS OF BREATH. VITAL SIGNS STABLE. DENIES CHEST PAIN. + PULSES. DENIES NUMBNESS/TINGLING. SKIN C/D/I. GAIT UNSTEADY AT TIMES. PATIENT HAVING LOOSE STOOL. SAMPLE SENT TO LAB. NO DISCOMFORT NOTED. SITTER AT BEDSIDE WILL CONTINUE TO MONITOR
[2016-10-31] VITALS (8 sets, daily range): BP systolic 138–164; BP diastolic 86–100
--- NOTE | 2016-10-31 07:44 | PN- Housestaff ---
STAN FREIRE,DOROTEO 10/31/16 0743: Subjective Follow-up For: Alcohol detox Complaints: no complaints Subjective: I have seen and examined the pt. He is doing well and has no current complains. He denies any sob, chestpain or palpitations. He wants to get his belongings back have talked to nurse will be arranged Review of Systems Constitutional: Reports: no symptoms. Denies: chills, diaphoresis, fever. EENTM: Reports: no symptoms. Cardiovascular: Denies: chest pain, edema, palpitations. Respiratory: Denies: cough, orthopnea, sputum production. Gastrointestinal: Denies: abdominal pain, bloating, constipation, diarrhea. Genitourinary: Reports: no symptoms. Musculoskeletal: Reports: no symptoms. Skin: Reports: no symptoms. Objective Last 24 Hrs of Vital Signs/I&O Vital Signs Date Time Temp Pulse Resp B/P B/P Pulse O2 O2 Flow FiO2 Mean Ox Delivery Rate 10/31 1439 99.0 64 20 164/100 95 Room Air 10/31 1130 58 180/104 10/31 0604 98.4 86 22 138/86 94 Room Air 10/31 0600 98.4 86 22 138/86 / 0305 144/98 / 0221 98.3 54 20 162/98 96 /04 0200 98.3 54 20 162/98 /03 2300 98.5 61 20 156/108 97 Room Air / 2200 98.5 61 20 156/108 /03 2000 98.5 52 18 162/100 / 1939 98.5 52 18 162/100 96 Room Air 10/30 1800 98.2 58 20 165/80 /03 1600 98.2 58 20 165/80 03 1515 98.2 58 20 165/80 95 Room Air Intake & Output 10/31 1600 07/04 0800 07/04 0000 Intake Total 300 Output Total 250 300 Balance -250 0 Intake, Oral 300 Output, Urine 250 300 Physical Exam General Appearance: Alert, Oriented X3, Cooperative, No Acute Distress Skin: No Rashes, No Breakdown Cardiovascular: Normal S1, Normal S2, No Murmurs Lungs: Clear to Auscultation, Normal Air Movement Abdomen: Normal Bowel Sounds, Soft, No Tenderness Neurological: Normal Speech Extremities: No Tenderness/Swelling Current Medications: Current Medications Sig/Joe Start time Last Medication Dose Route Stop Time Status Admin Folic Acid 1 MG DAILY 10/29 1000 DC 10/31 PO 10/31 1001 1129 Hydrochlorothiazide 12.5 MG DAILY 10/31 1000 AC 10/31 PO 1129 Ibuprofen 600 MG Q6P PRN 10/29 1800 DC PO Lisinopril 20 MG DAILY 10/29 1000 AC 10/31 PO 1130 Lorazepam 1.5 MG Q6 10/31 1200 AC 10/31 PO 1129 Lorazepam 2 MG Q6 10/30 1200 DC 10/31 PO 0537 Lorazepam 2 MG Q2P PRN 10/28 2345 AC 10/30 IV 0226 Lorazepam 1 MG Q2P PRN 10/28 2345 AC 10/31 IV 0239 Metoprolol Tartrate 25 MG BID 10/29 1000 DC 10/30 PO 0943 Morphine Sulfate 1 MG Q4P PRN 10/29 1800 AC IV Multivitamins 1 TAB DAILY 10/29 1000 AC 10/31 PO 1130 Oxycodone HCl 5 MG Q6P PRN 10/29 1800 AC PO Senna 187 MG AT BEDTIME PRN 10/29 1600 AC PO Thiamine HCl 100 MG DAILY 10/29 1000 DC 10/31 PO 10/31 1001 1130 Last 24 Hrs of Lab/Aditya Results Last 24 Hrs of Labs/Mics: Laboratory Tests 10/31/16 0620: Anion Gap 12, Estimated GFR > 60, BUN/Creatinine Ratio 12.9, Total Bilirubin 1.3 , Direct Bilirubin 0.3, AST 101 H, ALT 150 H, Alkaline Phosphatase 68, Total Protein 6.0 L, Albumin 3.7, CBC w Diff NO MAN DIFF REQ, RBC 3.72 L, MCV 92.2, MCH 30.8, RDW 16.7 H, MPV 8.6, Gran % 36.6 L, Lymphocytes % 37.5, Monocytes % 19.5 H, Eosinophils % 3.1, Basophils % 3.3 H, Absolute Granulocytes 1.6, Absolute Lymphocytes 1.6, Absolute Monocytes 0.8 H, Absolute Eosinophils 0.1, Absolute Basophils 0.1, PUBS MCHC 33.5 10/30/16 1625: Urine Color YEL, Urine Clarity CLEAR, Urine pH 6.0, Ur Specific Sparks 1.015, Urine Protein 30 H, Urine Ketones 15 H, Urine Nitrite NEG, Urine Bilirubin NEG , Urine Urobilinogen 0.2, Ur Leukocyte Esterase NEG, Ur Microscopic SEDIMENT EXAMINED, Urine RBC 3-5, Urine WBC RARE, Ur Epithelial Cells RARE, Urine Bacteria MOD H, Urine Mucus MOD H, Urine Hemoglobin MOD H, Urine Glucose NEG Microbiology 10/30 1635 STOOL: Clostridium difficile Toxin A & B - COMP Orders CIWA Score (last 24 hrs): max 9 Assessment/Plan Assessment: Assessment: This is a 56 yo male with PMH of HTN, psoriasis on Humira, alcohol abuse, questionable hx of black outs who comes in for CC of etoh detox. CIWA in ED ranging form 8-20 and requred 16mg Ativan in less than 24 hrs. ED work up shows: Vitals: 97.1, 123, 15, 158/118, 97 AB.45, PCO2 33, bicarbonate 22 CBC: White count 4.3, hemoglobin 12.0, hematocrit 35.9 BEP sodium 135, BUN 15, creatinine 0.8 T bili 1.5, AST 253, ALT 216, UA: Greater than 300 protein, 40 ketones, large hemoglobin with only 1-3 and RBC. PLAN Etoh detox: Patient has has CIWA scores ranging from 5 to 9. He had requirement of almost 10 mg of Ativan in 24 hours. Though patient denies any history of DTs or seizures, his episodes of blackout are concerning for possible seizure activity vs Alcohol abuse. * CIWA protocol 3q6 around the clock * Ativan dose decreased to 1.5 mg q6 * Folate and thiamine. * Social work consult * will be discharged to inpatient alcohol rehabilitation facility when his detox is complete. Hypertension: Patient is usually on lisinopril 20 mg at home. Here he was started on home meds in addition to metoprolol 50 mg bid as his blood pressure remained elevated in ED. * Lisinopril 20 mg * Lopressor 25 mg discontinued due to decrease in HR * Orthostatic findings laying BP 142/100 HR 52, Sitting 148/100 HR 63, Standing 144/102 HR 89 * Hydrochlorothiazide 12.5 mg added for better BP control Transaminitis: Patient has T bili 1.5, AST 253, ALT 219 on admission. This is likely secondary to alcohol consumption. Will rule out other etiologies * TRENDING DOWN tbil 1.3 ASt 101 [id number] * Hepatitis panel NONREACTIVE * Coags Normal * no need to monitor Hematuria: Patient had large hemoglobin on UA but only 1-3 RBC on admission. UA rpeat shows mod Hb .normal bun and cr and cpk of 481 Psoriasis: Pt is on Humira; unsure of time of last dose. Holidng in hospital. Will have to obtain records. * HOLDING HUMIRA BLACK OUTS and Pyridostigmine: Unsure of hx of black outs and why pt is on this medication. Will have to call his nerurologist and verify his history. * Holding pyridostigmine! Problem List: 1. Alcohol intoxication Pain Ratin Pain Location: N/a Pain Goal: Pain 4 or less Pain Plan: n Tomorrow's Labs & Rationales: none required MARIA DE JESUS MENA MD 10/31/16 0939: Attending MD Review Statement Attending Statement Attending MD Statement: examined this patient, discuss w/resident/PA/ASSISTANT ATHLETIC TRAINER, agreed w/resident/PA/ASSISTANT ATHLETIC TRAINER, reviewed EMR data (avail), discussed with nursing Attending Assessment/Plan: Overall patient is doing better and his CIWA scores are down to peak of 9. We are tapering the Ativan by 25% per day, he started off with 3mg every 6hrs for 24 hours then 2mg every 6 hours for 24 hours and now will cut him down to 1.5mg every 6hrs for 24 hours. His pressure remains on the high side but the metoprolol was stopped due to bradycardia. Of note he takes Hydrochthiazide 12.5 mg on the outpatient with lisinopril 20 so will restart his hydrochlorothiazide given that his volume status is stable. He has alcoholic transaminitis and his hepatitis panel is negative. I don't think he needs daily labs. The plan is for him to go to an inpatient alcohol rehabilitation facility when his detox is complete.
[2016-10-31 07:48] LABS: ABSOLUTE BASOPHIL COUNT 0.1 /CUMM (0.0-0.2); ABSOLUTE EOSINOPHIL COUNT 0.1 /CUMM (0.0-0.7); ABSOLUTE GRANULOCYTE CT 1.6 /CUMM (1.4-6.5); ABSOLUTE LYMPH COUNT 1.6 /CUMM (1.2-3.4); ABSOLUTE MONOCYTE COUNT 0.8 /CUMM (0.10-0.60); BASOPHIL % 3.3 % (0.0-2.0); EOSINOPHIL % 3.1 % (0-5); GRANULOCYTE % 36.6 % (42.2-75.2); HEMATOCRIT 34.3 % (42-52); MEAN CORPUSCULAR HGB 30.8 PG (27.0-31.0); MEAN CORPUSCULAR HGB CONC 33.5 G/DL (33.0-37.0); MEAN CORPUSCULAR VOLUME 92.2 FL (80.0-94.0); MEAN PLATELET VOLUME 8.6 FL (7.4-10.4); PLATELET COUNT 123 /CUMM (130-400); RBC DISTRIBUTION WIDTH 16.7 % (11.5-14.5); RED BLOOD CELL CT 3.72 /CUMM (4.70-6.10); WHITE BLOOD CELL COUNT 4.3 /CUMM (4.8-10.8)
--- NOTE | 2016-10-31 07:52 | NUR ---
PATIENT BP 162/98. PATIENT DENIES HEADACHE OR ANY OTHER DISCOMFORT. NO DISTRESS NOTED. MD MENESES WAS MADE AWARE. NO FURTHER ORDERS AT THIS TIME. IV ATIVAN PRN GIVEN PER CIWA.
[2016-11-01 06:18] VITALS: BP 150/80
[2016-11-01 08:00] VITALS: BP 150/80
--- NOTE | 2016-11-01 10:09 | NUR ---
sw attended rounds and heard pt might be done with ativan taper and ready to go tomorrow. call to [facility] who reports they will be ready for pt cloth picker in morning if pt is ready. Other hayes they will need to coordinate transportation for later in the day. Pt does not need to go with meds. they do not prefer open bottles of meds,. Pt can go with scripts for medical meds and they will order meds needed for treatment of substance abuse if needed. Bar to faxed updated info to [facility]. sw to followup with pt today.
--- NOTE | 2016-11-01 11:05 | PN- Housestaff ---
STAN FREIRE,[facility] 11/01/16 1105: Subjective Follow-up For: Alcohol detox Complaints: no complaints Subjective: I have seen and examined the patient. He is resting comfortably in bed. His diarrhea has improved. He says his shakiness is better as well. There were no overnight Events. He denies any shortness of breath chest pain and palpitations. He wants to be discharged soon. Review of Systems Constitutional: Reports: no symptoms. EENTM: Reports: no symptoms. Cardiovascular: Reports: no symptoms. Denies: chest pain, edema, palpitations. Respiratory: Denies: cough, hemoptysis, sputum production. Gastrointestinal: Denies: bloating, constipation, vomiting. Genitourinary: Reports: no symptoms. Musculoskeletal: Reports: no symptoms. Neurological/Psychological: Reports: no symptoms. Objective Last 24 Hrs of Vital Signs/I&O Vital Signs Date Time Temp Pulse Resp B/P B/P Pulse O2 O2 Flow FiO2 Mean Ox Delivery Rate 11/01 1200 98.7 132 18 140/90 11/01 1015 95 158/90 11/01 0800 97.3 228 22 150/80 07/05 0618 97.3 85 22 150/80 97 Room Air / 2147 97.4 94 22 148/90 98 Room Air / 2124 98.1 94 20 148/90 94 07/04 1439 99.0 64 20 164/100 95 Room Air Physical Exam General Appearance: Alert, Oriented X3, Cooperative, No Acute Distress Skin: Psoriasis seen on both lower extremities Cardiovascular: Normal S1, Normal S2, No Murmurs Lungs: Clear to Auscultation, Normal Air Movement Abdomen: Normal Bowel Sounds, Soft, No Tenderness Neurological: Normal Speech Extremities: No Cyanosis, No Edema, psoriasis lowe extremities Vascular: Normal Pulses Assessment/Plan Assessment: Assessment: This is a 56 yo male with PMH of HTN, psoriasis on Humira, alcohol abuse, questionable hx of black outs who comes in for CC of etoh detox. CIWA in ED ranging form 8-20 and requred 16mg Ativan in less than 24 hrs. ED work up shows: Vitals: 97.1, 123, 15, 158/118, 97 AB.45, PCO2 33, bicarbonate 22 CBC: White count 4.3, hemoglobin 12.0, hematocrit 35.9 BEP sodium 135, BUN 15, creatinine 0.8 T bili 1.5, AST 253, ALT 216, UA: Greater than 300 protein, 40 ketones, large hemoglobin with only 1-3 and RBC. PLAN Etoh detox: Patient has has CIWA scores ranging from 0 t03 He had requirement of almost of 5.5mg Ativan in 24 hours. Though patient denies any history of DTs or seizures, his episodes of blackout are concerning for possible seizure activity vs Alcohol abuse. * CIWA protocol 3q6 around the clock * Ativan dose decreased to 1 mg q8 * Folate and thiamine. * Social work consult * will be discharged to inpatient alcohol rehabilitation facility when his detox is complete. Hypertension: Patient is usually on lisinopril 20 mg at home. Here he was started on home meds in addition to metoprolol 50 mg bid as his blood pressure remained elevated in ED. * Lisinopril 20 mg * Lopressor 25 mg discontinued due to decrease in HR * Orthostatic findings laying BP 142/100 HR 52, Sitting 148/100 HR 63, Standing 144/102 HR 89 * Hydrochlorothiazide 12.5 mg added for better BP control Diarrhea pt had 4 episodes of diarrhea C.diff toxin was sent and was negative Transaminitis: Patient has T bili 1.5, AST 253, ALT 219 on admission. This is likely secondary to alcohol consumption. Will rule out other etiologies naty 1.3 ASt 101 [id number] 07/05 * TRENDING DOWN * Hepatitis panel NONREACTIVE * Coags Normal * no need to monitor Hematuria: Patient had large hemoglobin on UA but only 1-3 RBC on admission. UA rpeat shows mod Hb .normal bun and cr and cpk of 481 Psoriasis: Pt is on Humira; unsure of time of last dose. Holidng in hospital. Will have to obtain records. * HOLDING HUMIRA will continue on discharge BLACK OUTS and Pyridostigmine: Unsure of hx of black outs and why pt is on this medication. Will have to call his nerurologist and verify his history. * Holding pyridostigmine! neurology physician family law legal assistant at associated neurologist of [facility] was contacted. We discussed the indication for patient's Phyridostigmine. seems like that it was his orthostatic hypotension. While in the hospital he has not been orthostatic and has not fallen. Most likely his orthostasis and autonomic neuropathy is related to alcohol. We discussed about stopping his Phyridostigmine because according to the physician family law legal assistant patient was taking it off and on Problem List: 1. Alcohol intoxication Pain Ratin Pain Location: n/a Pain Goal: Pain 4 or less Pain Plan: na Tomorrow's Labs & Rationales: none ADELINA AUGUSTIN MD 11/01/16 1324: Attending MD Review Statement Attending Statement Attending MD Statement: examined this patient, discuss w/resident/PA/CLOTH NAPPING SUPERVISOR, agreed w/resident/PA/CLOTH NAPPING SUPERVISOR, reviewed EMR data (avail), discussed with nursing, discussed with case mgmt, amended to note Attending Assessment/Plan: Patient seen and examined, feels overall better. CIWA scores are low. We have discontinued his beta wyatt. Patient was started on hydrocodone has I as well as kept on lisinopril for blood pressure control. We have room to go up on the medication if needed. Beta wyatt was discontinued. I spoke with the neurology physician family law legal assistant at associated neurologist of [facility]. We discussed the indication for patient's better to stick Karin seems like that it was his orthostatic hypotension. While in the hospital he has not been orthostatic and has not fallen. Most likely his orthostasis and autonomic neuropathy is related to alcohol. We discussed about stopping his better to stick me because according to the physician family law legal assistant patient was taking it off and on prior to this admission. We'll continue to decrease his Ativan scheduled taper. Continue the rest of the medications. He is a possible discharge to [facility] tomorrow.
[2016-11-01 12:00] VITALS: BP 140/90
--- NOTE | 2016-11-01 12:45 | NUR ---
PATIENT HEART 132 AND REGULAR. CIWA SCORE 11. 2MG IV ATIVAN GIVEN ORDERED. GENERAL DENTIST/OWNER HERIBERTO AWARE. WILL REASSESS PATIENT PER CIWA PROTOCOL.
[2016-11-01 14:36] VITALS: BP 116/82
--- NOTE | 2016-11-01 15:06 | NUR ---
Bar colaboration with MD Jozef, Case management , PT and Nursing regarding safe discharge plan. Bar recieved a call from [facility] asking pt to be assessed for safe walking as they have gravel walks and pt has been in bed for days. Rn walked Pt. and PT did eval. Information faxed to [facility]. Pt expected to be ready in the afternoon. Sw to look for medical michelle and will notify [facility] when ready. Bar spoke with pt who was frustrated that he could not go to today. sw explained need for taper. Pt agreed to PT eval. sw validated pt's frustration and provided support. Pt thankful for suport. sw available upon request.
--- NOTE | 2016-11-01 17:32 | Discharge Summary ---
Visit Information Visit Dates Admission Date: 10/29/16 Discharge Date: 11/03/2016 Hospital Course Course Attending Physician: CHARLI FREIRE,ADELINA Primary Care Physician: UNKNOWN Hospital Course: This is a 56 yo male with PMH of HTN, psoriasis on Humira who comes in with CC of requesting Etoh detox. Pt states that he had been binge drinking for a week and decided to quit suddenly. He went to a rehab facility at request of a brother and when at the facility he was visibly intoxicated, he sent to ED. Pt states that he drinks every day about .5 to 1 pint of vodka. He has been able to stop cold turkey for several weeks at a time without adverse consequences. He has never had a hx of seizure or DTs. He has never been to any form of rehab for etoh withdrawl. Pt states that he drinks every day about .5 to 1 pint of vodka. He does have hx of "blackouts." He was in ED with CIWA scores at max of 20. As he has had high requirements for Ativan and decision was made to admit for inpatient detox. ED work up showed: Vitals: 97.1, 123, 15, 158/118, 97 AB.45, PCO2 33, bicarbonate 22 CBC: White count 4.3, hemoglobin 12.0, hematocrit 35.9 BEP sodium 135, BUN 15, creatinine 0.8 T bili 1.5, AST 253, ALT 216, Pt was seen for following problems Etoh detox: Pt went thru std. CIWA protocol. Max score at 20. Never required ICU or Ativan drip. No complications of DT/ seizures. * CIWA taper * Banana bag--> PO vitamin * Social work * Obtained PT clearance for alcohol rehab Transaminitis: Patient came in with T bili 1.5, AST 253, ALT 216. This is likely secondary to alcohol consumption. Trended down during admission. * Nml coags * negative hepatitis panel Psoriasis: Pt is on Humira;last dose two weeks ago. * Resume on outpt basis Black outs: neurologist has started him on pyridostigmine with the thought that the episodes are 2/2 orthostasis. No evidence of orthostasis in hospital. Med was held in hospital and pt never had an episode. * Follow up with neurologist * STOP Pyridostigmine Allergies: Coded Allergies: No Known Allergies (10/28/16) Disposition Summary Disposition Principal Diagnosis: etoh detox Additional Diagnosis: htn Discharge Disposition: other general hospital Discharge Instructions General Discharge Information Code Status: Full Code Patient's Diet: heart healthy Patient's Activity: as tolerated Follow-Up Instructions/Appts: See above Medications at Discharge Discharge Medications: Stop taking the following medications: Pyridostigmine [place] (Pyridostigmine [place]) 60 MG TABLET ORAL TWICE DAILY Qty = 60 Continue taking these medications: Lisinopril (Lisinopril) 20 MG TABLET 1 Tablet ORAL DAILY Qty = 30 Comments: PER PT Aspirin (Aspirin*) 81 MG TAB.CHEW Comments: PER PT Multivitamin (One Daily Multivitamin) 1 EACH TABLET 1 Tablet ORAL DAILY Comments: PER PT Start taking the following new medications: Hydrochlorothiazide (Hydrochlorothiazide) 12.5 MG CAPSULE 1 Tablet ORAL DAILY Qty = 30 Refills = 1 Folic Acid (Folic Acid) 1 MG TABLET 1 Tablet ORAL DAILY Qty = 30 No Refills Thiamine HCl (Thiamine HCl) 100 MG TABLET 1 Tablet ORAL DAILY Qty = 30 No Refills Copies To: CHARLI FREIRE,ADELINA
[2016-11-01] MEDS ORDERED: PYRIDOSTIGMINE60 M1 PO (17:33)
--- NOTE | 2016-11-01 17:39 | Patient Discharge Instructions ---
Discharge Instructions General Discharge Information You were seen/treated for: Etoh withdrawl You had these procedures: CIWA taper Watch for these problems: 1. confusion 2. seizure 3. chest pain 4. sob Special Instructions: 1. Follow up with [facility] 2. Follow up with a PCP (Referral given) thereafter Diet Continue normal diet: No Recommended Diet: Heart Healthy Activity Full Activity/No Limits: No Activity Self Limited: Yes Acute Coronary Syndrome Inclusion Criteria At DC or during hospital stay patient has or had the following: Discharge Core Measures Meds if any: Prescribed or Continued at Discharge Meds if any: NOT Prescribed or Continued at Discharge Congestive Heart Failure Inclusion Criteria At DC or during hospital stay patient has or had the following: CHF DIAGNOSIS No Discharge Core Measures Meds if any: Prescribed or Continued at Discharge Meds if any: NOT Prescribed or Continued at Discharge Cerebrovascular accident Inclusion Criteria At DC or during hospital stay patient has or had the following: CVA/TIA Diagnosis No Discharge Core Measures Meds if any: Prescribed or Continued at Discharge Meds if any: NOT Prescribed or Continued at Discharge Venous thromboembolism Inclusion Criteria VTE Diagnosis No VTE Type NONE VTE Confirmed by (Test) NONE Discharge Core Measures - Per Current guidelines, there needs to be overlap - treatment for the first 5 days of Warfarin therapy. - If discharged on Warfarin prior to 5 days of - overlap therapy, the patient will need to be - assessed for post discharge needs including - *Post discharge parental anticoagulation - *Warfarin and/or parental anticoagulation education - *Follow up date to check INR post discharge At least 5 days overlap therapy as Inpatient No Meds if any: Prescribed or Continued at Discharge Note: Overlap Therapy is Warfarin and Anticoagulant Meds if any: NOT Prescribed or Continued at Discharge
[2016-11-01 22:28] VITALS: BP 142/96
[2016-11-02] VITALS (7 sets, daily range): BP systolic 120–140; BP diastolic 80–108
--- NOTE | 2016-11-02 07:05 | PN- Housestaff ---
See Addendum Subjective Follow-up For: Alcohol detox Complaints: no complaints Subjective: I have seen and examined the patient. He is sitting comfortably in bed. He does not have any complaint. He wants to be discharged. His diarrhea has resolved. He states that his hand shakiness has improved a lot. He states that he has been taking pyridostigmine twice a day and sometimes once a day and wants to know if he is going to continue it or not. There were no acute overnight events. He does not complain of chest pain shortness of breath or palpitations. Review of Systems Constitutional: Reports: no symptoms. Cardiovascular: Denies: chest pain, palpitations. Respiratory: Denies: cough, short of breath. Gastrointestinal: Denies: diarrhea. Genitourinary: Reports: no symptoms. Musculoskeletal: Reports: no symptoms. Skin: Reports: no symptoms. Objective Last 24 Hrs of Vital Signs/I&O Vital Signs Date Time Temp Pulse Resp B/P B/P Pulse O2 O2 Flow FiO2 Mean Ox Delivery Rate 11/02 0851 140/80 / 0641 98.5 106 20 140/80 96 Room Air 07/06 0600 98.5 106 20 140/80 07/05 2228 98.9 110 20 142/96 95 07/05 1436 98.5 122 20 116/82 95 Room Air 07/05 1400 108 07/05 1200 98.7 132 18 140/90 07/05 1015 95 158/90 Intake & Output /06 1600 07/06 0800 07/06 0000 Intake Total 120 600 Output Total Balance 120 600 Intake, Oral 120 600 Physical Exam General Appearance: Alert, Oriented X3, Cooperative, No Acute Distress Skin: psoriasis lower extremities HEENT: Atraumatic Cardiovascular: Normal S1, Normal S2, No Murmurs Lungs: Clear to Auscultation, Normal Air Movement Abdomen: Normal Bowel Sounds, Soft, No Tenderness Neurological: Normal Speech Extremities: No Edema, No Tenderness/Swelling Vascular: Normal Pulses Current Medications: Current Medications Sig/Joe Start time Last Medication Dose Route Stop Time Status Admin Hydrochlorothiazide 12.5 MG DAILY 10/31 1000 AC 11/02 PO 0851 Lisinopril 20 MG DAILY 10/29 1000 AC 11/02 PO 0851 Lorazepam 1 MG BID 11/02 1000 AC 11/02 PO 0851 Lorazepam 1 MG Q8 11/01 1400 DC 11/02 PO 0643 Lorazepam 1 MG Q6 11/01 1200 DC PO Lorazepam 2 MG Q2P PRN 10/28 2345 AC 11/01 IV 1252 Lorazepam 1 MG Q2P PRN 10/28 2345 AC 10/31 IV 0239 Morphine Sulfate 1 MG Q4P PRN 10/29 1800 AC IV Multivitamins 1 TAB DAILY 10/29 1000 AC 11/02 PO 0851 Oxycodone HCl 5 MG Q6P PRN 10/29 1800 AC PO Senna 187 MG AT BEDTIME PRN 10/29 1600 AC PO Orders CIWA Score (last 24 hrs): 4,2,2,2 Assessment/Plan Assessment: Assessment: This is a 56 yo male with PMH of HTN, psoriasis on Humira, alcohol abuse, questionable hx of black outs who comes in for CC of etoh detox. CIWA in ED ranging form 8-20 and requred 16mg Ativan in less than 24 hrs. ED work up shows: Vitals: 97.1, 123, 15, 158/118, 97 AB.45, PCO2 33, bicarbonate 22 CBC: White count 4.3, hemoglobin 12.0, hematocrit 35.9 BEP sodium 135, BUN 15, creatinine 0.8 T bili 1.5, AST 253, ALT 216, UA: Greater than 300 protein, 40 ketones, large hemoglobin with only 1-3 and RBC. PLAN Etoh detox: Patient has has CIWA scores ranging from 0 to 8 He had requirement of almost of 5 mg Ativan in 24 hours. Though patient denies any history of DTs or seizures, his episodes of blackout are concerning for possible seizure activity vs Alcohol abuse. * CIWA protocol 3q6 around the clock * Ativan dose decreased to 1 mg q12 * Folate and thiamine. * Social work consult * will be discharged to inpatient alcohol rehabilitation facility when his detox is complete. Hypertension: Patient is usually on lisinopril 20 mg at home. Here he was started on home meds in addition to metoprolol 50 mg bid as his blood pressure remained elevated in ED. * Lisinopril 20 mg * Lopressor 25 mg discontinued due to decrease in HR * Orthostatic findings laying BP 142/100 HR 52, Sitting 148/100 HR 63, Standing 144/102 HR 89 we are holding pyridostigmine * Hydrochlorothiazide 12.5 mg added for better BP control Diarrhea pt had 4 episodes of diarrhea C.diff toxin was sent and was negative today pt reports no diarrhea Transaminitis: Patient has T bili 1.5, AST 253, ALT 219 on admission. This is likely secondary to alcohol consumption. Will rule out other etiologies naty 1.3 ASt 101 [id number] 07/ * TRENDING DOWN Coags Normal Hepatitis panel NONREACTIVE * no need to monitor Hematuria: Patient had large hemoglobin on UA but only 1-3 RBC on admission. UA rpeat shows mod Hb .normal bun and cr and cpk of 481 * resolved Psoriasis: Pt is on Humira; unsure of time of last dose. Holidng in hospital. Will have to obtain records. * HOLDING HUMIRA will continue on discharge BLACK OUTS and Pyridostigmine: Unsure of hx of black outs and why pt is on this medication. Will have to call his nerurologist and verify his history. * Holding pyridostigmine! neurology physician residential living assistant at associated neurologist of [facility] was contacted. We discussed the indication for patient's Phyridostigmine. seems like that it was his orthostatic hypotension. While in the hospital he has not been orthostatic and has not fallen. Most likely his orthostasis and autonomic neuropathy is related to alcohol. We discussed about stopping his Phyridostigmine because according to the physician residential living assistant patient was taking it off and on. Problem List: 1. Alcohol intoxication Pain Ratin Pain Location: none Pain Goal: Pain 4 or less Pain Plan: none Tomorrow's Labs & Rationales: none DVT/Prophylaxis: early ambulation low risk
[2016-11-02] MEDS ORDERED: HYDROCHLOROTH12.5 M3 PO (15:31)
[2016-11-02] MEDS ORDERED: FOLIC ACID1 M1 PO (15:35)
[2016-11-02] MEDS ORDERED: THIAMINE HCL100 M1 PO (15:35)
--- NOTE | 2016-11-02 16:59 | NUR ---
Bar spoke with admisssions regarding delay in discharge. Sw reporting the plan is to try for discharge again tomorrow. 2 pm for possible discharge. updated info sent to [email or web address] sw available upon request.
[2016-11-03] VITALS: BP 120/82
[2016-11-03 02:00] VITALS: BP 120/82
[2016-11-03 04:00] VITALS: BP 120/82
[2016-11-03 06:00] VITALS: BP 150/100
--- NOTE | 2016-11-03 06:06 | NUR ---
PT BP 150/100, HR 118, NO COMPLAINTS OF PAIN OR DISTRESS, DENIES CHEST PAIN. MD GIRON NOTIFIED.
[2016-11-03 06:07] VITALS: BP 150/100
--- NOTE | 2016-11-03 07:18 | PN- Housestaff ---
STAN FREIRE,[facility] 11/03/1618: Subjective Follow-up For: etoh detox Subjective: pt doing well. ciwas at o. no prn required Review of Systems Constitutional: Reports: no symptoms. Objective Last 24 Hrs of Vital Signs/I&O Vital Signs Date Time Temp Pulse Resp B/P B/P Pulse O2 O2 Flow FiO2 Mean Ox Delivery Rate 11/03 0808 166/90 11/03 0607 98.0 118 18 150/100 98 11/03 0600 98.0 118 18 150/100 11/03 0400 98.3 93 18 120/82 11/03 0200 98.3 93 18 120/82 / 0000 98.3 93 18 120/82 / 2213 98.3 93 20 120/82 94 / 2200 98.3 93 18 120/82 / 2024 140/108 / 2000 98.6 103 18 140/100 Intake & Output 11/03 1600 11/03 0800 11/03 0000 Intake Total 1000 240 Output Total Balance 1000 240 Intake, Oral 1000 240 Patient 220 lb Weight Physical Exam General Appearance: Alert, Oriented X3, Cooperative Skin: No Significant Lesion Assessment/Plan Assessment: Assessment: This is a 56 yo male with PMH of HTN, psoriasis on Humira, alcohol abuse, questionable hx of black outs who comes in for CC of etoh detox. CIWA in ED ranging form 8-20 and requred 16mg Ativan in less than 24 hrs. ED work up shows: Vitals: 97.1, 123, 15, 158/118, 97 AB.45, PCO2 33, bicarbonate 22 CBC: White count 4.3, hemoglobin 12.0, hematocrit 35.9 BEP sodium 135, BUN 15, creatinine 0.8 T bili 1.5, AST 253, ALT 216, UA: Greater than 300 protein, 40 ketones, large hemoglobin with only 1-3 and RBC. PLAN Etoh detox: Patient has has CIWA scores ranging from 0 to 8 He had no PRN requirement. Though patient denies any history of DTs or seizures, his episodes of blackout are concerning for possible seizure activity vs Alcohol abuse. * will be discharged to inpatient alcohol rehabilitation facility today Hypertension: Patient is usually on lisinopril 20 mg at home. Here he was started on home meds in addition to metoprolol 50 mg bid as his blood pressure remained elevated in ED. * Lisinopril 20 mg * Lopressor 25 mg discontinued due to decrease in HR * Orthostatic findings laying BP 142/100 HR 52, Sitting 148/100 HR 63, Standing 144/102 HR 89 we are holding pyridostigmine * Hydrochlorothiazide 12.5 mg added for better BP control Diarrhea pt had 4 episodes of diarrhea C.diff toxin was sent and was negative today pt reports no diarrhea Transaminitis: Patient has T bili 1.5, AST 253, ALT 219 on admission. This is likely secondary to alcohol consumption. Will rule out other etiologies naty 1.3 ASt 101 [id number] 07/ * TRENDING DOWN Coags Normal Hepatitis panel NONREACTIVE * no need to monitor Hematuria: Patient had large hemoglobin on UA but only 1-3 RBC on admission. UA rpeat shows mod Hb .normal bun and cr and cpk of 481 * resolved Psoriasis: Pt is on Humira; unsure of time of last dose. Holidng in hospital. Will have to obtain records. * HOLDING HUMIRA will continue on discharge BLACK OUTS and Pyridostigmine: Unsure of hx of black outs and why pt is on this medication. Will have to call his nerurologist and verify his history. * Holding pyridostigmine! neurology physician doctor assistant at associated neurologist of [facility] was contacted. We discussed the indication for patient's Phyridostigmine. seems like that it was his orthostatic hypotension. While in the hospital he has not been orthostatic and has not fallen. Most likely his orthostasis and autonomic neuropathy is related to alcohol. We discussed about stopping his Phyridostigmine because according to the physician doctor assistant patient was taking it off and on. Problem List: 1. Alcohol intoxication Pain Ratin Pain Location: none Pain Goal: Remain pain free Pain Plan: none Tomorrow's Labs & Rationales: none ADELINA AUGUSTIN MD 11/03/16 1437: Attending MD Review Statement Attending Statement Attending MD Statement: examined this patient, discuss w/resident/PA/SOFTWARE PROJECT LEAD, agreed w/resident/PA/SOFTWARE PROJECT LEAD, discussed with nursing, discussed with case mgmt, reviewed images, amended to note Attending Assessment/Plan: Patient seen and examined, doing well. CIWA scores zero, stable for DC to [facility].
[2016-11-03 08:08] VITALS: BP 166/90
[2016-11-03] MEDS ORDERED: HYDROCHLOROTH12.5 M3 PO (09:13)
[2016-11-03] MEDS ORDERED: HYDROCHLOROTHIA25 M1 PO (09:15)
== END 2016-11-03 15:30 | DRG 897 ==
LOC: ERH 16:20 → ERHI 10-29 07:16 → 2NB 10-29 07:16 → ERHI 10-29 07:54 → ENRESERV 10-29 08:01 → ENTRNSPT 10-29 08:34 → EDTRNSPTSTS 10-29 09:16 → 2NB 10-29 09:26 → CMPTRNSPT 10-29 09:32 → 2NB 11-01 11:56 → ENPENDDIS 11-03 09:42 → 2NB 11-03 15:30
PROVIDERS: Emergency Medicine; Student in an Organized Health Care Education/Training Program; ADMIT Internal Medicine
DX: F10.239 Alcohol dependence with withdrawal, unspecified (principal); I10 Essential (primary) hypertension; F10.229 Alcohol dependence with intoxication, unspecified; L40.9 Psoriasis, unspecified; Z91.14 Patient's other noncompliance with medication regimen; R74.0 Nonspecific elevation of levels of transaminase and lactic acid dehydrogenase [LDH]; R31.9 Hematuria, unspecified; R00.1 Bradycardia, unspecified
CPT/HCPCS: 2NBSP; 36415; 80307; 81001; 82436; 93005; 93010; 96361; 96374; 96375; 96376; 97116-GO; 97161-GP; 99291; G0480; J3490